=== PATIENT | female | born 1980 | race African-American/Black ===

== ENCOUNTER → 2019-11-03 15:00 | Outpatient (CLI) | payer OTHER, SELFPAY | PROVIDERS: Visit Provider Obstetrics & Gynecology | DX: N76.0 Acute vaginitis (principal) | CPT/HCPCS: 87070; 87077; 87186; 87205 ==

== ENCOUNTER → 2019-11-24 10:08 | Outpatient (CLI) | payer OTHER, SELFPAY ==
[2019-11-24] VITALS (8 sets, daily range): BP systolic 128–182; BP diastolic 68–96; PULSE 71–88; RESP 18–19; TEMP 36.4; O2SAT 97–98; BMI 49.1
[2019-11-24 11:34] LABS: Anion Gap 14.5 mEq/L (5-15); Blood Urea Nitrogen 14 mg/dL (7-18); Calcium 8.6 mg/dL (8.5-10.1); Carbon Dioxide 24 mmol/L (21.0-32.0); Chloride 106 mmol/L (98-107); Creatinine Clearance Estimated 104 mL/min (50-200); Creatinine,Serum 0.63 mg/dL (0.55-1.02); Estimated Glomerular Filt Rate 105 ml/min (>60); GFR (African American) 127 ML/MIN (>60); Glucose 92 mg/dL (74-106); Potassium 4.5 mmoL/L (3.5-5.1); Sodium 140 mmol/L (136-145)
--- NOTE | 2019-11-24 12:08 | HMH.PHACONS ---
- Pharmacy Consult Date: 11/24/19 Time: 12:08 Referring provider: DR. STEELE Reason for Consult:: VANCOMYCIN DOSING Allergies and ADEs:: Allergies Allergy/AdvReac Type Severity Reaction Status Date / Time clarithromycin [From Biaxin] Allergy Verified 11/21/19 10:05 Amoxicillin Allergy Unknown Uncoded 11/21/19 10:05 SULFA (sulfonamide) Allergy Unknown Uncoded 11/21/19 10:05 Home Medications:: Home Medications Medication Instructions Recorded Confirmed Type metronidazole 250 mg tablet 250 mg PO TID 10 Days #30 tab 10/21/19 11/21/19 Rx clobetasol 0.05 % topical ointment 1 applic TOPICAL BID #15 g 11/03/19 11/21/19 Rx lisinopril 40 mg tablet 40 mg PO tab 11/21/19 11/21/19 History metoprolol succinate 50 mg PO 11/21/19 11/21/19 History tablet,extended release 24 hr ondansetron 4 mg disintegrating 4 mg PO tab 11/21/19 11/21/19 History tablet sulfamethoxazole 800 1 tab PO BID 7 Days #14 tab 11/21/19 11/21/19 Rx mg-trimethoprim 160 mg tablet Height: 1.63 m Weight: 129.954 kg Laboratory Results:: Laboratory Results - last 24 hr 11/24/19 10:50: Sodium 140, Potassium 4.5, Chloride 106, Carbon Dioxide 24, Anion Gap 14.5, BUN 14, Creatinine 0.63, Estimated Creat Clear 104, Estimated GFR 105, Est GFR ( Amer) 127, Glucose 92, Calcium 8.6 Medical History: Reports:: Depression, Hypertension, MRSA Denies:: Cancer, Diabetes Mellitus Type 1, Diabetes Mellitus Type 2 Assessment and Plan - Assessment and plan all Dx Assessment and Plan for all problems:: BASED ON PATIENT FACTORS, RECOMMEND VANCOMYCIN 2500 MG IV Q12H. VANCOMYCIN TROUGH LEVEL AND BMP DUE ON 11/26/2019 PRIOR TO AM DOSE. PHARMACY WILL FOLLOW DAILY AND ADJUST APPROPRIATE.
[2019-11-27 23:23] VITALS: BP 149/76; PULSE 71; RESP 18; TEMP 36.7; O2SAT 97; BMI 49.1
== END ==
PROVIDERS: PCP Physician Assistant; Visit Provider Obstetrics & Gynecology
DX: N76.2 Acute vulvitis (principal); B95.62 Methicillin resistant Staphylococcus aureus infection as the cause of diseases classified elsewhere
CPT/HCPCS: 36415; 80048; 96365; 96366; G0463; J3370

== ENCOUNTER 2019-11-25 08:28 | Outpatient (CLI) | payer OTHER, SELFPAY ==
[2019-11-25 08:52] VITALS: BP 121/73; PULSE 72; RESP 18; TEMP 36.4
[2019-11-25 10:00] VITALS: BP 132/66; PULSE 72; RESP 18
[2019-11-25 12:23] VITALS: BP 117/55; PULSE 70; RESP 18
--- NOTE | 2019-11-25 21:00 | PC.NURSE ---
PT ARRIVED TO 2ND FLOOR AROUND 2019 ON 11/25/2019. ORDERS REVIEWED AND IDENTIFICATION VERIFIED. VANC DOSE WAS PRIMED AND READY FOR ADMINISTRATION. LAC IV WAS UNWRAPPED, AND ASSESSED PRIOR TO HOOKING TO PRIMED VANC TUBING. SWELLING PUFFINESS NOTED AT LAC IV SITE, UPON FLUSHING SITE PT REPORTED DISCOMFORT AND REQUESTED TO FIND ANOTHER IV SITE. MULTIPLE ATTEMPTS MADE TO OBTAIN IV ACCESS. A TOTAL OF [address] STEELE WAS NOTIFIED OF FAILED ATTEMPTS AND THE PREVIOUS ACCESS FROM DAY SHIFT WAS PLACED WITH ASSISTANCE OF U/S. STATED IT IS OKAY TO TELL HER TO GO HOME AND SKIP THIS VANC DOSE AND TO COME BACK IN THE MORNING. FURTHER OPTIONS WILL BE DISCUSSED IN THE MORNING. INFORMED PT OF 'S STATEMENTS. PREVIOUS IV ACCESS WAS REMOVED PRIOR TO LEAVING, CATHETER TIP INTACT ON REMOVAL. TOLERATED WELL. AMBULATED IN BATHROOM, REPORTED UO. AMBULATED IN ROOM AND OFF UNIT ON DISCHARGE WELL. VSS.
[2019-11-25 21:02] VITALS: BP 127/77; PULSE 73; RESP 18; TEMP 36.7; O2SAT 100
== END 2019-11-25 21:35 | disposition home or self-care (01) ==
LOC: INF 08:28
PROVIDERS: Visit Provider Obstetrics & Gynecology
DX: N76.2 Acute vulvitis (principal); B95.62 Methicillin resistant Staphylococcus aureus infection as the cause of diseases classified elsewhere
CPT/HCPCS: 96365; 96366; G0463; J3370

== ENCOUNTER → 2019-11-26 08:30 | Outpatient (CLI) | payer OTHER, SELFPAY ==
[2019-11-26] VITALS (7 sets, daily range): BP systolic 110–139; BP diastolic 75–81; PULSE 64–72; RESP 19–20; TEMP 36.4–36.6; O2SAT 95–99; BMI 49.1
--- NOTE | 2019-11-26 09:00 | XR_ITS ---
PROCEDURE: XR CHEST PORTABLE PICC PLAC CLINICAL HISTORY: PICC line placement COMPARISON: None FINDINGS: The cardiomediastinal silhouette and pulmonary vascularity are within normal limits. The lungs are clear without infiltrates, suspicious nodules, or pleural effusions. A PICC line has been inserted by the left subclavian approach. The tip is in satisfactory position in the region of the superior vena cava IMPRESSION: Left upper extremity PICC line in good position Dictated by: Chema Sotelo MD 11/26/2019 11:14 Electronically signed by Chema Sotelo MD in [place] 11/26/2019 11:14
== END ==
LOC: INF 08:30
PROVIDERS: Visit Provider Obstetrics & Gynecology
DX: N76.2 Acute vulvitis (principal); B95.62 Methicillin resistant Staphylococcus aureus infection as the cause of diseases classified elsewhere
CPT/HCPCS: 36569; 71045; 96365; 96366; C1751; G0463; J3370

== ENCOUNTER → 2019-11-27 08:37 | Outpatient (CLI) | payer OTHER, SELFPAY ==
[2019-11-27 08:39] VITALS: BMI 49.1
[2019-11-27 09:38] LABS: Anion Gap 9.2 mEq/L (5-15); Blood Urea Nitrogen 12 mg/dL (7-18); Calcium 8.5 mg/dL (8.5-10.1); Carbon Dioxide 29 mmol/L (21.0-32.0); Chloride 106 mmol/L (98-107); Creatinine Clearance Estimated 91 mL/min (50-200); Creatinine,Serum 0.72 mg/dL (0.55-1.02); Estimated Glomerular Filt Rate 90 ml/min (>60); GFR (African American) 109 ML/MIN (>60); Glucose 87 mg/dL (74-106); Potassium 4.2 mmoL/L (3.5-5.1); Sodium 140 mmol/L (136-145); Vancomycin,Trough 16.3 mcg/ml (10.0-20.0)
--- NOTE | 2019-11-27 10:01 | HMH.PHACONS ---
- Pharmacy Consult Date: 11/27/19 Time: 10:01 Referring provider: DR. STEELE Reason for Consult:: VANCOMYCIN TROUGH LEVEL Allergies and ADEs:: Allergies Allergy/AdvReac Type Severity Reaction Status Date / Time clarithromycin [From Biaxin] Allergy Verified 11/21/19 10:05 Amoxicillin Allergy Unknown Uncoded 11/21/19 10:05 SULFA (sulfonamide) Allergy Unknown Uncoded 11/21/19 10:05 Home Medications:: Home Medications Medication Instructions Recorded Confirmed Type lisinopril 40 mg tablet 40 mg PO DAILY tab 11/21/19 11/26/19 History metoprolol succinate 50 mg 50 mg PO DAILY 11/21/19 11/26/19 History tablet,extended release 24 hr ondansetron 4 mg disintegrating 4 mg PO NEEDED PRN tab 11/21/19 11/26/19 History tablet Clobetasol Propionate 1 applic TOPICAL BID 11/26/19 11/26/19 History Sulfamethoxazole/Trimethoprim 1 tab PO BID 11/26/19 11/26/19 History [Sulfamethoxazole-Tmp Ds Tablet*] metroNIDAZOLE [Flagyl 250mg 250 mg PO TID 11/26/19 11/26/19 History Tablet] Height: 1.63 m Weight: 129.727 kg Laboratory Results:: Laboratory Results - last 24 hr 11/27/19 08:35: Sodium 140, Potassium 4.2, Chloride 106, Carbon Dioxide 29 D, Anion Gap 9.2, BUN 12, Creatinine 0.72, Estimated Creat Clear 91, Estimated GFR 90, Est GFR ( Amer) 109, Glucose 87, Calcium 8.5, Vancomycin Trough 16.3 Medical History: Reports:: Depression, Hypertension, MRSA Denies:: Cancer, Diabetes Mellitus Type 1, Diabetes Mellitus Type 2 Assessment and Plan - Assessment and plan all Dx Assessment and Plan for all problems:: BASED ON PATIENT FACTORS AND VANCOMYCIN TROUGH LEVEL, RECOMMEND CONTINUING VANCOMYCIN 2500 MG IV Q12H. TOMORROW WILL BE DAY 5 OF VANCOMYCIN TREATMENT.
[2019-11-27 10:14] VITALS: BP 118/70; PULSE 70; RESP 18
[2019-11-27 12:23] VITALS: BP 139/74; PULSE 64; RESP 18
== END ==
LOC: INF 08:37
PROVIDERS: Visit Provider Obstetrics & Gynecology
DX: N76.2 Acute vulvitis (principal); B95.62 Methicillin resistant Staphylococcus aureus infection as the cause of diseases classified elsewhere
CPT/HCPCS: 80048; 80202; 96365; 96366; J3370

== ENCOUNTER → 2019-11-28 09:15 | Outpatient (CLI) | payer OTHER, SELFPAY ==
[2019-11-28 09:35] VITALS: BP 122/78; PULSE 79; RESP 18; TEMP 36.9
[2019-11-28 10:35] VITALS: BP 121/66; PULSE 92; RESP 18
[2019-11-28 11:00] VITALS: BP 138/77; PULSE 86; RESP 18
[2019-11-28 11:25] VITALS: BP 111/67; PULSE 92; RESP 18
[2019-11-28 20:51] VITALS: BMI 49.1
[2019-11-28 20:54] VITALS: BP 137/73; PULSE 79; RESP 19; TEMP 36.9; O2SAT 95
[2019-11-28 23:05] VITALS: BP 147/85; PULSE 85; RESP 20; TEMP 36.6; O2SAT 97
== END ==
LOC: INF 09:19
PROVIDERS: Visit Provider Obstetrics & Gynecology
DX: N76.2 Acute vulvitis (principal); B95.62 Methicillin resistant Staphylococcus aureus infection as the cause of diseases classified elsewhere
CPT/HCPCS: 96365; 96366; J3370

== ENCOUNTER → 2019-12-01 09:18 | Outpatient (CLI) | payer OTHER, SELFPAY | END | disposition home or self-care (01) | LOC: INF 09:18 | PROVIDERS: PCP Physician Assistant; Visit Provider Obstetrics & Gynecology | DX: Z45.2 Encounter for adjustment and management of vascular access device (principal) | CPT/HCPCS: 96523 ==

== ENCOUNTER → 2019-12-01 16:16 | Outpatient (CLI) | payer OTHER, SELFPAY | PROVIDERS: Visit Provider Obstetrics & Gynecology | DX: Z22.322 Carrier or suspected carrier of Methicillin resistant Staphylococcus aureus (principal) | CPT/HCPCS: 87070; 87077; 87186; 87205 ==

== ENCOUNTER 2019-12-08 13:05 | Outpatient (CLI) | payer OTHER, SELFPAY | END 2019-12-08 13:25 | disposition home or self-care (01) | LOC: INF 13:05 | PROVIDERS: Visit Provider Obstetrics & Gynecology | DX: Z45.2 Encounter for adjustment and management of vascular access device (principal); N76.0 Acute vaginitis | CPT/HCPCS: 96523 ==

== ENCOUNTER 2019-12-15 16:14 | Outpatient (CLI) | payer OTHER, SELFPAY | END 2019-12-15 16:29 | disposition home or self-care (01) | LOC: INF 16:14 | PROVIDERS: Visit Provider Obstetrics & Gynecology | DX: Z45.2 Encounter for adjustment and management of vascular access device (principal); N76.0 Acute vaginitis | CPT/HCPCS: 96523 ==

== ENCOUNTER 2019-12-19 12:45 | Outpatient (CLI) | payer OTHER, SELFPAY | END 2019-12-19 13:06 | disposition home or self-care (01) | LOC: INF 12:45 | PROVIDERS: PCP Physician Assistant; Visit Provider Physician Assistant | DX: Z95.828 Presence of other vascular implants and grafts (principal) | CPT/HCPCS: G0463 ==

== ENCOUNTER 2020-08-30 11:29 | Emergency (ER) | payer OTHER, SELFPAY ==
[2020-08-30 12:53] VITALS: BP 156/93; PULSE 87; RESP 21; TEMP 36.3; O2SAT 100; BMI 53.1
--- NOTE | 2020-08-30 12:57 | HMH.EDUTC ---
[facility] [place] Disposition Clinical Impression: Exposure to COVID-19 virus, Encounter for laboratory testing for COVID-19 virus Disposition: Home, Self-Care Condition on Discharge: Good Instructions: Preventing the Spread of Coronavirus Discharge Instructions Additional Instructions: *Monitor Temp, Over the counter Motrin or Tylenol as directed/as needed Tylenol every 4 hours and Motrin every 6 hours (as long as your family doctor has told you that you can take it) for fever or pain. and straight to ER if unable to lower temp less than 101.0 after medication given *Warm salt water gargles may help to soothe the throat *Throat Lozenges *Warm fluids like tea with honey may help to soothe the throat *Sleep elevated *Humidifier/Vaporizer Follow up IMMEDIATELY for new or worsening symptoms or no Noticeable improvement over the next 48-72 hours. 911 for difficulty breathing or swallowing You was tested for today for COVID19 your test result should be back later this evening, you may call back later this evening to see if your test results are back and the result You was given a handout with instructions for Self Quarantine and Self isolation for while you wait on test results and what to do if they are positive Referrals: Mei Gomez [Primary Care Provider] - As needed Forms: Work/School Release Time of Disposition: 13:01 Medical Decision Making - Pernell Inquiry Pt receiving controlled substance: No Pernell was queried for this patient: No Vital Signs: 08/30/20 12:53 Temperature 97.3 F L Temperature Source Oral Pulse Rate [Right Brachial] 87 Respiratory Rate 21 Blood Pressure [Right Arm] 156/93 H Blood Pressure Mean [Right Arm] 114 Blood Pressure Source [Right Arm] Automatic Cuff Blood Pressure Position [Right Arm] Sitting 02 Sat by Pulse Oximetry 100 Oxygen Delivery Method Room Air Orders (Tests/Meds): ORDERS Category Date Time Status Covid-19 Nasal PCR ([facility]) Routine Lab 08/30/20 12:10 Received [facility] [place] HPI - General Stated complaint: covid exposure Time Seen by Provider: 08/30/20 12:57 Mode of Arrival: Ambulatory Source of Information: Patient Limitations: No Limitations Description of Symptoms (Recalled from Triage Doc. by RN): PATIENT REQUESTING COVID TEST D/T EXPOSURE; DENIES SYMPTOMS HEENT Symptoms (Recalled from RN notes): No Resp Symptoms (Recalled from RN notes): No Skin Symptoms (Recalled from RN notes): No MS Symptoms (Recalled from RN notes): No Functional Status (Recalled from RN notes): WNL - History of Present Illness Provider Complaint: Patient states that she was recently around someone that tested positive for COVID yesterday States that she was in close contact multiple times over the week while having lunch etc and her children was camping with the person and in close proxiemity States that she isnt having any symptoms but wants to get tested - Related Data Home Medications Medication Instructions Recorded Confirmed lisinopril 40 mg tablet 40 mg PO DAILY tab 11/21/19 12/15/19 metoprolol succinate 50 mg 50 mg PO DAILY 11/21/19 12/15/19 tablet,extended release 24 hr ondansetron 4 mg disintegrating 4 mg PO NEEDED PRN tab 11/21/19 12/15/19 tablet Allergies Allergy/AdvReac Type Severity Reaction Status Date / Time clarithromycin [From Biaxin] Allergy Verified 12/01/19 08:32 Amoxicillin Allergy Unknown Uncoded 12/01/19 08:32 SULFA (sulfonamide) Allergy Unknown Uncoded 12/01/19 08:32 - Worker's Comp Is this a Worker's Comp case?: No [facility] History - Hepatitis A Screen Drug use history?: No High risk sexual behaviors?: No History of sexually transmitted infection?: No Currently employed?: No Childcare worker?: No Do you have indoor plumbing?: Yes Do you have electricity?: Yes Attestation statement:: This patient has been screened for Hepatitis A risk factors. I have reviewed the patient's past medical history: Yes Medical History: Reports:: De
[2020-08-30 13:05] VITALS: BP 156/93; PULSE 87; RESP 21; TEMP 36.3; O2SAT 100
== END 2020-08-30 13:12 | disposition home or self-care (01) ==
PROVIDERS: Emergency Provider Nurse Practitioner; PCP Physician Assistant
DX: Z20.828 Contact with and (suspected) exposure to other viral communicable diseases (principal); I10 Essential (primary) hypertension; F33.1 Major depressive disorder, recurrent, moderate; Z88.2 Allergy status to sulfonamides
CPT/HCPCS: 99201; U0003

== ENCOUNTER 2020-10-10 17:37 | Emergency (ER) | payer OTHER, SELFPAY ==
[2020-10-10 18:00] VITALS: BP 155/102; PULSE 92; RESP 16; TEMP 36.7; O2SAT 99; BMI 52.4
--- NOTE | 2020-10-10 18:24 | HMH.EDUTC ---
[facility] [place] Disposition Clinical Impression: Exposure to COVID-19 virus, Viral syndrome Pharyngitis Qualifiers: Pharyngitis/tonsillitis etiology: unspecified etiology Qualified Code(s): J02.9 - Acute pharyngitis, unspecified Disposition: Home, Self-Care Condition on Discharge: Good Instructions: DI for Pharyngitis/Tonsillopharyngitis -- Adult, Preventing the Spread of Coronavirus Discharge Instructions Additional Instructions: Drink plenty of fluids. Take tylenol for pain or fever. Return if you begin to have difficulty breathing. Follow up with your regular doctor. GO TO THE ER FOR ANY WORSENING SYMPTOMS Prescriptions: Ondansetron [Zofran 4mg ODT] 4 mg PO Q8HP PRN #20 tab.rapdis PRN Reason: Nausea Transmission Status: Received by [id number] cephALEXin [Keflex 500mg Cap] 500 mg PO Q8H 10 Days #30 cap Transmission Status: Received by [id number] Referrals: Mei Gomez [Primary Care Provider] - Time of Disposition: 18:28 Medical Decision Making - Medical Records Medical records reviewed: No: I reviewed the patient's medical records. - Pernell Inquiry Pt receiving controlled substance: No Vital Signs: 10/10/20 18:00 10/10/20 18:45 Temperature 98.1 F 98.1 F Temperature Source Oral Pulse Rate 92 H Pulse Rate [Right Brachial] 92 H Respiratory Rate 16 16 Blood Pressure 155/102 H Blood Pressure [Right Arm] 155/102 H Blood Pressure Mean [Right Arm] 119 Blood Pressure Source [Right Arm] Automatic Cuff Blood Pressure Position [Right Arm] Sitting 02 Sat by Pulse Oximetry 99 Oxygen Delivery Method Room Air Orders (Tests/Meds): ORDERS Category Date Time Status Covid-19 Nasal PCR Sendout [facility] Routine Lab 10/10/20 18:00 Received [facility] [place] HPI - General Stated complaint: Headache, sore throat, been exposed to COVID Time Seen by Provider: 10/10/20 18:24 Mode of Arrival: Ambulatory Source of Information: Patient Limitations: No Limitations Description of Symptoms (Recalled from Triage Doc. by RN): PATIENT REQUESTING COVID TEST D/T EXPOSURE HEENT Symptoms (Recalled from RN notes): No Resp Symptoms (Recalled from RN notes): No Skin Symptoms (Recalled from RN notes): No MS Symptoms (Recalled from RN notes): No Functional Status (Recalled from RN notes): WNL - History of Present Illness Provider Complaint: She has been exposed to covid in her home. She states that for the past 2 days she has had a sore throat, mild cough and felt very bad. She denies any shortness of breath and chest pain. - Related Data Home Medications Medication Instructions Recorded Confirmed lisinopril 40 mg tablet 40 mg PO DAILY tab 11/21/19 12/15/19 metoprolol succinate 50 mg 50 mg PO DAILY 11/21/19 12/15/19 tablet,extended release 24 hr ondansetron 4 mg disintegrating 4 mg PO NEEDED PRN tab 11/21/19 12/15/19 tablet Previous Rx's Medication Instructions Recorded Ondansetron [Zofran 4mg ODT] 4 mg PO Q8HP PRN #20 tab.rapdis 10/10/20 cephALEXin [Keflex 500mg Cap] 500 mg PO Q8H 10 Days #30 cap 10/10/20 Allergies Allergy/AdvReac Type Severity Reaction Status Date / Time clarithromycin [From Biaxin] Allergy Verified 12/01/19 08:32 Amoxicillin Allergy Unknown Uncoded 12/01/19 08:32 SULFA (sulfonamide) Allergy Unknown Uncoded 12/01/19 08:32 - Worker's Comp Is this a Worker's Comp case?: No [facility] History - Hepatitis A Screen Drug use history?: No High risk sexual behaviors?: No History of sexually transmitted infection?: No Currently employed?: No Childcare worker?: No Do you have indoor plumbing?: Yes Do you have electricity?: Yes Attestation statement:: This patient has been screened for Hepatitis A risk factors. I have reviewed the patient's past medical history: Yes Medical History: Reports:: Depression, Hypertension, MRSA Denies:: Cancer, Diabetes Mellitus Type 1, Diabetes Mellitus Type 2 Comment: MRSA Other Surgeries: Yes: D
[2020-10-10 18:45] VITALS: BP 155/102; PULSE 92; RESP 16; TEMP 36.7; O2SAT 99
[2020-10-12 13:33] LABS: Covid-19 Nasal PCR Sendout Lex Not Detected
== END 2020-10-10 18:46 | disposition home or self-care (01) ==
PROVIDERS: Emergency Provider Nurse Practitioner Family; PCP Physician Assistant
DX: Z20.828 Contact with and (suspected) exposure to other viral communicable diseases (principal); R03.0 Elevated blood-pressure reading, without diagnosis of hypertension
CPT/HCPCS: 99201; U0004